=== PATIENT | male | born 1940 | race Two or more races ===

== ENCOUNTER 2024-03-19 14:32 | Emergency (ER) | payer BC, OTHER ==
[~2024-03-19] VITALS: Ht 152.4 cm; Wt 68.1 kg
[2024-03-19 15:11] LABS: Urine Bacteria None Seen /hpf (None Seen)
[2024-03-19 15:29] LABS: Urine Blood Negative /uL (Negative); Urine Clarity Clear (Clear); Urine Color Yellow (Yellow); Urine Mucus FEW (None Seen); Urine Protein, UAD Negative (Negative); Urine Specific Gravity 1.021 (1.001-1.035); Urine Urobilinogen 2 mg/dL (Negative); Urine WBC <1 /hpf (0 - 3)
[2024-03-19] MEDS: ONDANSETRON ODT 4 MG TAB PO ONE (15:36)
[2024-03-19 15:41] VITALS: TEMP 98.4
[2024-03-19] MEDS: HYDROmorphone HCL 2 MG/ML VL/or syr IM ONE (15:41)
[2024-03-19 16:03] LABS: Hematocrit 37.2 % (41.0-53.0); Hemoglobin 12.5 g/dL (13.5-17.5); Mean Corpuscular Hemoglobin 33.5 pg (28.0-32.0); Mean Corpuscular Hgb Conc. 33.7 g/dL (32.0-36.0); Mean Corpuscular Volume 99.3 fL (80.0-100.0); Red Blood Cells 3.74 10^6/uL (4.5-5.90); Red Cell Distribution Width 13.4 % (11.8-14.3); White Blood Cell 6.2 10^3/uL (4.4-10.8)
[2024-03-19 16:07] LABS: Band Neutrophils % (manual) 0; Basophils % (manual) 0 (0.0-2.0); Blast Cells 0; Metamyelocytes % 0; Myelocytes % 0; Promyelocytes % 0; Reactive Lymphocytes 0
[2024-03-19 16:25] LABS: Alanine Aminotransferase 15 U/L (7-40); Albumin 3.9 g/dL (3.2-4.8); Alkaline Phosphatase 95 U/L (46-116); Anion Gap 6 (5-15); Aspartate Aminotransferase 22 U/L (13-40); BUN/Creatinine Ratio 17.1 (10.0-20.0); Blood Urea Nitrogen 12 mg/dL (9-23); Calcium 9.6 mg/dL (8.5-10.1); Carbon Dioxide 25 mmol/L (20-30); Chloride 107 mmol/L (98-107); Glucose 145 mg/dL (74-106); Potassium 3.9 mmol/L (3.5-5.1); Sodium 138 mmol/L (136-145)
[2024-03-19 16:36] LABS: Lipase 40 U/L (12-53)
[2024-03-19 16:37] VITALS: BP 114/51; PULSE 61; RESP 17; O2SAT 97
[2024-03-19 17:09] LABS: Eosinophils % (manual) 36 (0-7); Lymphocytes % (manual) 11 (10.0-50.0); Monocytes % (manual) 3 (0-12); Platelet Estimate Adequate; RBC Morphology Normal
[2024-03-19] MEDS ORDERED: HYDR-4902 PO (18:14)
[2024-03-19] MEDS ORDERED: ZOFR4T PO (18:14)
== END 2024-03-19 18:37 | disposition home or self-care (01) ==
LOC: ER 14:32
DX: I88.0 Nonspecific mesenteric lymphadenitis (principal); K86.89 Other specified diseases of pancreas; D64.9 Anemia, unspecified
CPT/HCPCS: 36415; 74176; 80053; 81001; 83605; 83690; 83880; 84484; 85007; 85027; 96372; 99285; J1170; Q0162

== ENCOUNTER 2024-04-09 10:27 | Emergency (ER) | payer BC ==
[~2024-04-09] VITALS: Ht 157.5 cm; Wt 62.8 kg
[~2024-04-09 10:27] MED LIST: HYDR-4902 PO; ZOFR4T PO
[2024-04-09] MEDS: SODIUM CHLORIDE 0.9% 1,000 ML IVB ONE (10:45)
[2024-04-09] MEDS: HYDROcodone-ACET 10/325MG TAB PO ONE (11:00)
[2024-04-09 11:33] LABS: White Blood Cell 6.2 10^3/uL (4.4-10.8)
[2024-04-09 11:35] LABS: Hematocrit 37.4 % (41.0-53.0); Mean Corpuscular Hemoglobin 33.9 pg (28.0-32.0); Mean Corpuscular Hgb Conc. 34.8 g/dL (32.0-36.0); Mean Corpuscular Volume 97.3 fL (80.0-100.0); Red Blood Cells 3.85 10^6/uL (4.5-5.90); Red Cell Distribution Width 13.2 % (11.8-14.3)
[2024-04-09 11:40] LABS: Band Neutrophils % (manual) 0; Basophils % (manual) 0 (0.0-2.0); Blast Cells 0; Metamyelocytes % 0; Myelocytes % 0; Promyelocytes % 0; Reactive Lymphocytes 0
[2024-04-09 11:44] LABS: Alanine Aminotransferase 14 U/L (7-40); Albumin 3.7 g/dL (3.2-4.8); Alkaline Phosphatase 100 U/L (46-116); Anion Gap 5 (5-15); Aspartate Aminotransferase 16 U/L (13-40); BUN/Creatinine Ratio 13.8 (10.0-20.0); Blood Urea Nitrogen 8 mg/dL (9-23); Calcium 9.4 mg/dL (8.7-10.4); Carbon Dioxide 27 mmol/L (20-30); Chloride 102 mmol/L (98-107); Glucose 174 mg/dL (74-106); Lipase 23 U/L (12-53); Potassium 4.1 mmol/L (3.5-5.1); Sodium 134 mmol/L (136-145)
[2024-04-09 11:45] LABS: Total Protein 6.6 g/dL (5.7-8.2)
[2024-04-09 11:50] LABS: INR 1.13 (0.9-1.15); Prothrombin Time 11.9 sec (9.3-11.8)
[2024-04-09 14:06] LABS: Eosinophils % (manual) 24 (0-7); Lymphocytes % (manual) 13 (10.0-50.0); Monocytes % (manual) 2 (0-12); Platelet Estimate Adequate
[2024-04-09 16:17] VITALS: BP 132/78; TEMP 98
[2024-04-09 16:20] VITALS: PULSE 88; RESP 20; O2SAT 98
== END 2024-04-09 16:16 | disposition short-term general hospital (02) ==
LOC: ER 10:27
DX: N32.9 Bladder disorder, unspecified (principal); K85.90 Acute pancreatitis without necrosis or infection, unspecified; E11.9 Type 2 diabetes mellitus without complications
CPT/HCPCS: 36415; 71250; 74176; 80053; 83605; 83690; 84484; 85007; 85027; 85610; 85730; 87040; 93005; 96360; 99285; J7030